=== PATIENT | male | born 1960 | race Caucasian/White ===

== ENCOUNTER 2021-05-27 11:53 | Emergency (ER) | payer SELFPAY ==
[~2021-05-27] VITALS: Ht 182.9 cm; Wt 75.5 kg
[~2021-05-27 11:53] MED LIST: ACETAMINOPHEN W1 TA6 PO
[2021-05-27 13:56] LABS: COLLECTION METHOD CLEAN CATCH
[2021-05-27 13:59] LABS: HEMATOCRIT 44.4 % (42.0-52.0); HEMOGLOBIN 14.6 g/dl (13.5-18.0); MEAN CELL VOLUME 89 fl (80.0-100.0); MEAN CORPUSCULAR HEMOGLOBIN 29 pg (27.0-31.0); MEAN CORPUSCULAR HGB CONC 33 g/dl (33.0-37.0); MEAN PLATELET VOLUME 9.7 fl (7.4-10.4); PLATELET COUNT 843 K/mm3 (130-400); RED BLOOD COUNT 4.99 M/mm3 (4.20-5.60); REDCELL DISTRIBUTION WIDTH-CV 12.6 % (11.5-14.5)
[2021-05-27 14:10] LABS: ALANINE AMINOTRANSFERASE 134 U/L (0-55); ALBUMIN 2.4 gm/dL (3.4-4.8); ALKALINE PHOSPHATASE 108 U/L (40-150); ANION GAP 9 mmol/L (7-16); AST,SGOT 82 U/L (5-34); BLOOD UREA NITROGEN 17 mg/dL (8-26); CALCIUM 8.8 mg/dL (8.4-10.2); CARBON DIOXIDE 25 mmol/L (23-31); CHLORIDE 100 mmol/L (98-107); CREATININE, serum 0.93 mg/dL (0.72-1.25); GLUCOSE 101 mg/dL (70-99); LIPASE 57 U/L (8-78); POTASSIUM 4.4 mmol/L (3.5-4.5); SODIUM 134 mmol/L (136-145); TOTAL PROTEIN 7.5 gm/dL (6.2-8.1)
[2021-05-27 14:19] LABS: MUCOUS Present (NOT PRESENT); PH 5 (5-8); SQUAMOUS EPITHELIAL None Seen /hpf (0-10); URINE APPEARANCE Hazy (CLEAR/HAZY); URINE BACTERIA None Seen (NONE SEEN); URINE BILIRUBIN Positive (NEGATIVE); URINE BLOOD Negative (NEGATIVE); URINE COLOR Amber (YELLOW); URINE GLUCOSE Negative (NEGATIVE); URINE KETONE Negative (NEGATIVE); URINE LEUKOCYTE ESTERASE Negative (NEGATIVE); URINE NITRATE Negative (NEGATIVE); URINE PROTEIN(semi-quant) 1+ (NEGATIVE); URINE UROBILINOGEN >=4.0 mg/dL (NEGATIVE)
[2021-05-27 14:20] LABS: TROPONIN-I < 0.010 ng/mL (0.00-0.033)
[2021-05-27 14:31] LABS: BAND 3 % (0-10); LYMPHOCYTE 8 % (20.0-51.0); NEUTROPHILS 79 % (42.0-75.2); PLATELET ESTIMATE INCREASED (NORMAL)
[2021-05-27 17:35] VITALS: BP 129/70; PULSE 74; TEMP 98.1
== END 2021-05-27 17:35 | disposition home or self-care (01) ==
LOC: COL.ER 11:53
PROVIDERS: Emergency Medicine
DX: U07.1 COVID-19 (principal); D72.829 Elevated white blood cell count, unspecified; D75.839 Thrombocytosis, unspecified; R74.01 Elevation of levels of liver transaminase levels
CPT/HCPCS: Q9967

== ENCOUNTER → 2021-12-29 | Outpatient (CLI) | payer OTHER | LOC: COL.RAD 10:33 | DX: Z02.71 Encounter for disability determination (principal); M47.816 Spondylosis without myelopathy or radiculopathy, lumbar region ==